=== PATIENT | male | born 1960 | race Caucasian/White ===

== ENCOUNTER 2021-08-03 16:22 | Inpatient (IN) ==
[~2021-08-03 16:22] MED LIST: CALCIUM CHLORIDE 1,000 MG/10 ML SYRINGE IV ONE; EPINEPHrine 1 MG/10 ML (1:10,000) SYRINGE IV ONE; ETOMIDATE 20 MG/10 ML VIAL IV ONE; ROCURONIUM 10 MG/ML ML IV ONE
[2021-08-03] MEDS ORDERED: 0.9 % SODIUM CHLORIDE 1,000 ML IV ONE ×3 (16:33→17:53)
[2021-08-03 17:08] LABS: POC Blood Urea Nitrogen 55 mg/dL (6-20); POC CO2 10 mmol/L (22-30); POC Calcium, Ionized 1.01 mmEq/L (1.16-1.32); POC Chloride 81 mEq/L (96-108); POC Glucose, Random > 700 mg/dL; POC Hematocrit 45 % (41-55); POC Potassium 5.1 mEql/L (3.3-5.1); POC Sodium 107 mEq/L (133-145)
--- NOTE | 2021-08-03 17:31 | Emergency Department Note ---
HPI General Chief complaint: Shortness of Breath/Dyspnea Stated complaint: SOB, back pain Time Seen by Provider: 08/03/21 16:33 Source: family Mode of arrival: ambulatory History of Present Illness HPI Narrative: This is a 61-year-old T2DM patient who presented to the [place] ER with altered mental status and severe dehydration. Blood sugars were noted to be greater than 1500. He was started on IV fluids and given 10 units of subcutaneous insulin. Given his lactic acidosis of 11.3, acute kidney injury with a creatinine of 3.9, and potassium of 5.5 he was transferred to our emergency room for further work-up and treatment. Upon arrival his mental status is intact. He has received 2 L of IV fluids. He is alert and oriented and able to give me reasonably decent history. EKG shows sinus tachycardia with an incomplete left bundle branch block. VBG shows a lactic acid of 10.2, pH is 6.98, CO2 of 29, bicarb of 6.8. Patient meets criteria for DKA. Patient states that he is on Eliquis for history of atrial fibrillation. He has been a type II diabetic for many years and continues on Tradjenta only. He also has a history of seizure disorder on Keppra, and chronic low back pain. He denies a history of cardiac disease. He did see a physical therapy nurse in the remote past for a possible heart attack, but cannot give me any more history than that. He states that he has had fairly increased thirst and increased urination for at least 6 months. Last time he saw his PCP was 2 months ago. He became weak over the last 72 hours and states he fell out of bed this morning because he was so weak. He did not lose consciousness. Patient had negative Covid swab in [place]. He had an elevated D-dimer of 2348, a troponin that was within normal limits per their parameters. Chest x-ray with was without infiltrates per chart review. Related Data Allergies Allergy/AdvReac Type Severity Reaction Status Date / Time Unable to Assess Allergy Unverified 08/03/21 16:25 Review of Systems ROS ROS Narrative: Narrative: All systems ED: reviewed and negative except as stated. [facility] Narrative Patient History Narrative: Narrative: Medical/Surgical/Family History All Active Problems (Updated 08/03/21 @ 19:51 by Kailey Norris PA-C) DKA (diabetic ketoacidosis) (Acute) Leukocytosis (Acute) Acute kidney injury (Acute) Complete left bundle branch block (Acute) Social History Smoking Status: Former smoker Exam Narrative Narrative: General: AOx3, NAD, ill appearing. Appears fatigued but is conversant. HEENT: PERRL, EOMI, normocephalic. Moist mucous membranes. Normal facies and normal dentition. Chest: Symmetric Respiratory: Lungs clear to auscultation bilaterally. No respiratory distress. Unlabored breathing. Heart: Tachycardic rate and regular rhythm, no murmurs/clicks/rubs. Abdomen: Non-tender, Non distended. No organomegaly. Extremities: Warm and well perfused. No edema. DP 2+ bilaterally. No venous stasis. Abrasions noted to the right anterior johnson and knee. Neuro: No focal deficits. Cranial nerves II-XII grossly normal. Skin: Warm dry, no rashes or lesions, no cyanosis. Psych: Normal mood and affect Heme/Lymph: No abnormal bruising Course Course Course Narrative: 61-year-old male patient arrives via EMS from [place] in DKA Reevaluation(s) Reevaluation #1: Continuous IV fluids, initiate IV insulin drip, renal panel every 2 hours to assess anion gap and potassium Obtain EKG, chest x-ray, CBC, CMP, UA Reevaluation #2: CBC with white blood cell count of 27,200. Chest x-ray is without infiltrates and UA is bland without infectious markers. EKG shows a sinus tachycardia with a left bundle branch block and negative for Scarbossa's criteria. Troponin was within normal limits during his evaluation in [place]. Vital Signs Vital signs: Vital Signs Temperature 96.9 F L 08/03/21 16:25 Pulse Rate 111 H 08/03/21 16:25 Respiratory Rate 20 08/03/21 16:25 Blood Pressure 99/55 08/03/21 16:25 Pulse Oximetry (%) 90 08/03/21 16:25 Temperature 96.9 F L 08/03/21 16:25 Pulse Rate 105 H 08/03/21 19:31 Respiratory Rate 19 08/03/21 19:31 Blood Pressure 146/124 08/03/21 19:31 Pulse Oximetry (%) 97 08/03/21 19:31 [facility] Narrative Medical decision making narrative: Diabetic ketoacidosis Acute kidney injury Leukocytosis Left bundle branch block The patient is currently stable and receiving continuous IV fluids and insulin drip for anion gap acidosis. Patient will need admission for DKA. I believe his leukocytosis is related to his DKA and is unlikely infection given his clinical presentation, UA without infectious markers, and a normal chest x-ray. The patient is signed out to Dr. Crouch, hospitalist, who has accepted the patient for admission. Lab Data Result diagrams: 08/03/21 16:49 08/03/21 18:18 Labs: Lab Results 08/03/21 08/03/21 08/03/21 Range/Units 16:49 16:49 17:43 WBC 27.2 H (4.5-11.0) K/mcL RBC 4.65 (4.63-6.08) M/mcL Hgb 14.1 (13.7-17.5) g/dL Hct 47.4 (40.1-51.0) % POC Hct 45 (41-55) % MCV 101.9 H (80.0-100.0) fL MCH 30.3 (26.0-34.0) pg MCHC 29.7 L (31.0-36.0) g/dL RDW 13.4 (11.5-14.5) % Plt Count 166 (140-440) K/mcL MPV (7.4-10.4) fL Neut % (Auto) 89.6 H (38.0-78.0) % Lymph % (Auto) 5.4 L (15.5-49.0) % [place] % (Auto) 4.1 (1.0-12.0) % Eos % (Auto) 0.6 (0.0-7.0) % Baso % (Auto) 0.3 (0.0-2.0) % Lymph # (Auto) 1.48 L (1.50-4.80) K/mcL [place] # (Auto) 1.12 H (0.10-0.90) K/mcL Eos # (Auto) 0.16 (0.00-0.70) K/mcL Baso # (Auto) 0.09 (0.00-0.30) K/mcL Absolute Neutrophils 24.35 H (1.80-8.00) K/mcL POC Sodium 107 L* (133-145) mEq/L Sodium (133-145) mmol/L POC Potassium 5.1 (3.3-5.1) mEql/L Potassium (3.3-5.1) mmol/L POC Chloride 81 L (96-108) mEq/L Chloride (96-108) mmol/L Carbon Dioxide (22-30) mmol/L POC Total CO2 10 L (22-30) mmol/L Anion Gap (8.0-16.0) POC BUN 55 H (6-20) mg/dL BUN (8-23) mg/dL Creatinine (0.7-1.2) mg/dL POC Creatinine 3.0 H (0.6-1.2) mg/dL GFR Calculation Glucose (70-105) mg/dL POC Glucose > 700 H* mg/dL Calcium (8.6-10.4) mg/dL POC WB Ioniz Calcium 1.01 L (1.16-1.32) mmEq/L Magnesium (1.6-2.5) mg/dL Total Bilirubin (0.1-1.0) mg/dL AST (<40) U/L ALT (<40) U/L Alkaline Phosphatase (39-117) U/L Total Protein (5.9-8.4) gm/dL Albumin (3.2-5.2) gm/dL Globulin (2.2-3.7) gm/dL Albumin/Globulin Ratio (1.0-2.3) Urine Color Straw Urine Appearance Hazy A (Clear) Urine pH 5.0 (5.0-9.0) Ur Specific [place] 1.024 (1.000-1.035) Urine Protein Negative (Negative) mg/dL Urine Glucose (UA) >=500 A (Negative) mg/dL Urine Ketones 5 A (Negative) mg/dL Urine Occult Blood 0.03 (Negative) mg/dL Urine Nitrate Negative (Negative) Urine Bilirubin Negative (Negative) mg/dL Urine Urobilinogen Negative mg/dL Ur Leukocyte Esterase Negative (Negative) /uL Urine RBC 0 (0-3) /hpf Urine WBC < 1 (0-4) /hpf Ur Squamous Epith Cells 0 (0-4) /hpf Urine Bacteria None (0) /hpf Urine Mucus Few A (None) /hpf Ur Culture Indicated? No 08/03/21 08/03/21 Range/Units 18:18 18:18 WBC (4.5-11.0) K/mcL RBC (4.63-6.08) M/mcL Hgb (13.7-17.5) g/dL Hct (40.1-51.0) % POC Hct (41-55) % MCV (80.0-100.0) fL MCH (26.0-34.0) pg MCHC (31.0-36.0) g/dL RDW (11.5-14.5) % Plt Count (140-440) K/mcL MPV (7.4-10.4) fL Neut % (Auto) (38.0-78.0) % Lymph % (Auto) (15.5-49.0) % [place] % (Auto) (1.0-12.0) % Eos % (Auto) (0.0-7.0) % Baso % (Auto) (0.0-2.0) % Lymph # (Auto) (1.50-4.80) K/mcL [place] # (Auto) (0.10-0.90) K/mcL Eos # (Auto) (0.00-0.70) K/mcL Baso # (Auto) (0.00-0.30) K/mcL Absolute Neutrophils (1.80-8.00) K/mcL POC Sodium (133-145) mEq/L Sodium 112 L* (133-145) mmol/L POC Potassium (3.3-5.1) mEql/L Potassium 4.2 (3.3-5.1) mmol/L POC Chloride (96-108) mEq/L Chloride 83 L (96-108) mmol/L Carbon Dioxide 9 L* (22-30) mmol/L POC Total CO2 (22-30) mmol/L Anion Gap 20.0 H (8.0-16.0) POC BUN (6-20) mg/dL BUN 42 H (8-23) mg/dL Creatinine 2.3 H (0.7-1.2) mg/dL POC Creatinine (0.6-1.2) mg/dL GFR Calculation 29 Glucose 1383 H* (70-105) mg/dL POC Glucose mg/dL Calcium 5.8 L* (8.6-10.4) mg/dL POC WB Ioniz Calcium (1.16-1.32) mmEq/L Magnesium 2.2 (1.6-2.5) mg/dL Total Bilirubin 0.4 (0.1-1.0) mg/dL AST 29 (<40) U/L ALT 15 (<40) U/L Alkaline Phosphatase 106 (39-117) U/L Total Protein 4.0 L (5.9-8.4) gm/dL Albumin 2.5 L (3.2-5.2) gm/dL Globulin 1.5 L (2.2-3.7) gm/dL Albumin/Globulin Ratio 1.7 (1.0-2.3) Urine Color Urine Appearance (Clear) Urine pH (5.0-9.0) Ur Specific [place] (1.000-1.035) Urine Protein (Negative) mg/dL Urine Glucose (UA) (Negative) mg/dL Urine Ketones (Negative) mg/dL Urine Occult Blood (Negative) mg/dL Urine Nitrate (Negative) Urine Bilirubin (Negative) mg/dL Urine Urobilinogen mg/dL Ur Leukocyte Esterase (Negative) /uL Urine RBC (0-3) /hpf Urine WBC (0-4) /hpf Ur Squamous Epith Cells (0-4) /hpf Urine Bacteria (0) /hpf Urine Mucus (None) /hpf Ur Culture Indicated? ED POC Tests ED POC Tests: BERNARDO - SARS Antigen Negative CC TIME Critical Care Time Critical Care Time: Yes Total Critical Care Time: 32 Attestation: I personally spent a total of 32 minutes of critical care time in obtaining history, performing a physical exam, bedside monitoring of interventions, collecting interpreting tests and discussions with consultants but excluding time spent performing procedures, treating other patients and teaching time. Clinical concern: Acute decompensation from severe DKA Intervention IV fluids, insulin drip, stabilization of anion gap Discharge Plan Patient/Caregiver Discharge Instructions Pt seen by SEAT SCOOPER MACHINE/PA only: No Clinical Impression: DKA (diabetic ketoacidosis), Leukocytosis, Acute kidney injury, Complete left bundle branch block Patient Disposition: Xfer As Inpt ([facility]) Follow up with: Soy Mcgovern [Primary Care Provider] -
[2021-08-03 17:42] LABS: Basophils # (Auto) 0.09 K/mcL (0.00-0.30); Basophils % (Auto) 0.3 % (0.0-2.0); Eosinophils # (Auto) 0.16 K/mcL (0.00-0.70); Eosinophils % (Auto) 0.6 % (0.0-7.0); Hematocrit 47.4 % (40.1-51.0); Hemoglobin 14.1 g/dL (13.7-17.5); Lymphocytes # (Auto) 1.48 K/mcL (1.50-4.80); Lymphocytes % (Auto) 5.4 % (15.5-49.0); Mean Cell Volume 101.9 fL (80.0-100.0); Mean Corpuscular HGB Conc 29.7 g/dL (31.0-36.0); Monocytes # (Auto) 1.12 K/mcL (0.10-0.90); Monocytes % (Auto) 4.1 % (1.0-12.0); Neutrophils % (Auto) 89.6 % (38.0-78.0); Platelet Count 166 K/mcL (140-440); RBC 4.65 M/mcL (4.63-6.08); Red Cell Distribution Width 13.4 % (11.5-14.5); WBC 27.2 K/mcL (4.5-11.0)
[2021-08-03] MEDS: INSULIN REGULAR, HUMAN 50 UNIT in 0.9 % SODIUM CHLORIDE 99.5 ML IV SCH ×2 (17:51→22:58)
--- NOTE | 2021-08-03 18:41 | XRay Report ---
CLINICAL information: Leukocytosis COMPARISON: None FINDINGS: Heart size, mediastinum and pulmonary vessels are normal. Lungs are clear. No effusions. IMPRESSION: Negative Interpreted and Authenticated by: Zach Hendricks 08/03/21
[2021-08-03 18:52] LABS: Appearance,Urine HAZY (Clear); Bilirubin,Urine Negative (Negative); Color,Urine STRAW; Culture Indicated,Urine No; Glucose,Urine (UA) >=500 mg/dL (Negative); Ketones,Urine 5 mg/dL (Negative); Leukocyte Esterase,Urine Negative /uL (Negative); Mucus,Urine FEW /hpf; Nitrate,Urine Negative (Negative); Protein,Urine Negative (Negative); Specific Gravity,Urine 1.024 (1.000-1.035); Urine Blood 0.03 mg/dL (Negative); Urine RBC 0 /hpf (0-3); Urine Squamous Epithelial Cell 0 /hpf (0-4); Urine WBC < 1 /hpf (0-4); Urobilinogen,Urine Negative
[2021-08-03 19:11] LABS: ALT/SGPT 15 U/L (<40); AST/SGOT 29 U/L (<40); Albumin 2.5 gm/dL (3.2-5.2); Albumin/Globulin Ratio 1.7 (1.0-2.3); Alkaline Phosphatase 106 U/L (39-117); Bilirubin,Total 0.4 mg/dL (0.1-1.0); Blood Urea Nitrogen 42 mg/dL (8-23); Calcium 5.8 mg/dL (8.6-10.4); Carbon Dioxide 9 mmol/L (22-30); Chloride 83 mmol/L (96-108); Globulin 1.5 gm/dL (2.2-3.7); Glomerular Filtration Rate 29; Glucose 1383 mg/dL (70-105)
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
[2021-08-03] MEDS ORDERED: 0.9 % SODIUM CHLORIDE 1,000 ML IV SCH (20:00)
[2021-08-03 20:21] LABS: Beta Hydroxybutyrate 3.89 mmol/L (<0.27)
[2021-08-03] MEDS ORDERED: CEPHALEXIN 250 MG CAPSULE PO ONE (21:06)
[2021-08-03] MEDS ORDERED: SULFAMETHOXAZOLE/TRIMETHOPRIM 1 TABLET PO ONE (21:06)
[2021-08-03] MEDS ORDERED: CALCIUM GLUCONATE 4.65 MEQ in DEXTROSE 5% IN WATER 50 ML IV ONE (21:31)
[2021-08-03] MEDS ORDERED: ONDANSETRON 4 MG/2 ML VIAL IV PRN (21:31)
[2021-08-03] MEDS ORDERED: IPRATROPIUM/ALBUTEROL 3 ML AMPUL.NEB NEB PRN (21:31)
[2021-08-03] MEDS ORDERED: FAMOTIDINE/PF 20 MG/2 ML VIAL IV SCH (21:31)
[2021-08-03] MEDS ORDERED: METOCLOPRAMIDE 10 MG/2 ML VIAL IV PRN (21:31)
[2021-08-03] MEDS ORDERED: hydrALAZINE 20 MG/ML VIAL IV PRN (21:31)
[2021-08-03] MEDS ORDERED: CALCIUM GLUCONATE 4.65 MEQ/10 ML VIAL ONE (21:57)
[2021-08-03] MEDS: 0.9 % SODIUM CHLORIDE 10 ML SYRINGE IV SCH (22:00)
[2021-08-03] MEDS ORDERED: INSULIN REGULAR, HUMAN 1 UNIT/0.01 ML UNIT ONE (22:04)
[2021-08-03 22:25] LABS: POC Blood Urea Nitrogen 53 mg/dL (6-20); POC CO2 14 mmol/L (22-30); POC Calcium, Ionized 1.12 mmEq/L (1.16-1.32); POC Chloride 84 mEq/L (96-108); POC Glucose, Random > 700 mg/dL; POC Hematocrit 44 % (41-55); POC Sodium 114 mEq/L (133-145)
[2021-08-03] MEDS: DOCUSATE SODIUM 100 MG CAPSULE PO SCH (22:59)
[2021-08-03 23:38] LABS: Estimated Average Glucose(eAG) 381 mg/dL; Hemoglobin A1C 14.9 % Hgb (4.0-6.0)
[2021-08-03] MEDS ORDERED: fentaNYL 100 MCG/2 ML VIAL IV PRN (23:38)
[2021-08-03] MEDS ORDERED: PANTOPRAZOLE 40 MG VIAL IV ONE (23:58)
[2021-08-04] MEDS ORDERED: NOREPINEPHRINE BITARTRATE 4 MG/4 ML VIAL IV ONE (00:10)
[2021-08-04] MEDS ORDERED: PANTOPRAZOLE 40 MG VIAL IV ONE (00:14)
[2021-08-04] MEDS ORDERED: NOREPINEPHRINE BITARTRATE 8 MG in 0.9 % SODIUM CHLORIDE 242 ML IV SCH (00:15)
[2021-08-04] MEDS ORDERED: 0.9 % SODIUM CHLORIDE 250 ML IV SCH ×4 (00:15→10:00)
[2021-08-04] MEDS ORDERED: METOPROLOL TARTRATE 5 MG/5 ML VIAL IV PRN (00:24)
[2021-08-04] MEDS ORDERED: SODIUM BICARBONATE 50 MEQ/50 ML VIAL ONE ×2 (01:05→01:15)
[2021-08-04] MEDS ORDERED: SODIUM BICARBONATE 50 MEQ/50 ML VIAL IV ONE ×3 (01:10→10:53)
--- NOTE | 2021-08-04 01:12 | Procedure Note ---
PROC Central Line Placement Right IJ: Date of Procedure: 08/04/21 Time out performed: Yes Patient placed on monitor/pulse ox: Yes MD prep: mask, sterile gown and sterile gloves Central line prep: 2% Chlorhexidine scrub Ultrasound used for placement: Yes Central line lumen inserted: quad and 16 cm Post procedure: sutured in place, good blood return, all ports aspirated, flushed, capped and sterile dressing applied Patient tolerated procedure: no complications Additional comments: cxr ordered for placement
--- NOTE | 2021-08-04 01:52 | Emergency Department Note ---
Event Note Event Note: Was called to ICU, for a CODE BLUE. This patient is admitted in critical condition for DKA, became unresponsive. Upon evaluation patient is in extremis undergoing BVM by RT, nursing staff obtaining further lines. On the monitor patient is hypotensive with a regular narrow complex cardiac rhythm and maintaining saturations with BVM. He is poorly responsive with agonal respirations and only grimaces to pain, but not protecting his airway has emesis in back of airway, was suctioned. Will require emergent intubation. Am concerned about worsening acidosis, hyperkalemia, aspiration, respiratory arrest. Patient was immediately given 1 g IV calcium and bicarb and started on IV bolus INTUBATION PROCEDURE NOTE: Rapid sequence intubation performed using 10mg of etomidate IV push followed by 70 mg rocuronium. Patient is intubated by myself using glidescope. Post intubation, good color change noted on the CO2 detector and equal breath sounds heard bilaterally. Portable chest x-ray has been ordered which shows satisfactory position of the endotracheal tube. The patient was placed on a ventilator. Procedure was performed by myself at bedside. I then placed a left upper extremity ultrasound-guided peripheral IV for vascular access. Further care managed by hospitalist.
[2021-08-04 02:05] LABS: POC Blood Urea Nitrogen 53 mg/dL (6-20); POC CO2 15 mmol/L (22-30); POC Calcium, Ionized 1.29 mmEq/L (1.16-1.32); POC Chloride 88 mEq/L (96-108); POC Creatinine 3.4 mg/dL (0.6-1.2); POC Glucose, Random > 700 mg/dL; POC Hematocrit 39 % (41-55); POC Potassium 3.6 mEql/L (3.3-5.1); POC Sodium 117 mEq/L (133-145)
--- NOTE | 2021-08-04 02:15 | XRay Report ---
HISTORY: Central line placement COMPARISON: 08/03/2021 FINDINGS: Right IJ line tip overlies the SVC azygos junction. There is no pneumothorax or other complication. Endotracheal and NG tubes remain in stable satisfactory position. Heart size, mediastinum and pulmonary vessels are normal. Moderate right and small left basilar infiltrates have developed. No effusion. IMPRESSION: Moderate right basilar infiltrate. Right IJ line in satisfactory position Interpreted and Authenticated by: Zach Hendricks 08/04/21
--- NOTE | 2021-08-04 02:17 | XRay Report ---
CLINICAL INFORMATION: Distended/tympanic COMPARISON: None. FINDINGS: The stomach, small and large bowel show moderate symmetric dilatation. There is no air in the rectosigmoid region. . There is no free air, soft tissue mass, organomegaly or pathologic calcification. IMPRESSION: Probable moderate ileus. Distal colonic obstruction is less likely Interpreted and Authenticated by: Zach Hendricks 08/04/21
--- NOTE | 2021-08-04 02:23 | XRay Report ---
CLINICAL INFORMATION: ETT placement COMPARISON: 08/03/2021 1721 hours TECHNIQUE: Portable FINDINGS: The heart size, mediastinum and pulmonary vessels are unremarkable. Endotracheal tube in satisfactory position with the tip 4 cm above the carl. NG tube extends off the edge of film the gastric antrum. Mild bibasilar atelectasis noted. There are no effusions. The bones and soft tissues are within normal limits. IMPRESSION: Endotracheal tube in satisfactory position. Mild bibasilar atelectasis Interpreted and Authenticated by: aZch Hendricks 08/04/21
[2021-08-04] MEDS ORDERED: VASOPRESSIN 20 UNIT/ML VIAL ONE (02:52)
[2021-08-04] MEDS ORDERED: ALBUMIN HUMAN 25 GM/100 ML BAG IV ONE (02:57)
[2021-08-04] MEDS ORDERED: VASOPRESSIN 20 UNIT in DEXTROSE 5% IN WATER 99 ML IV SCH ×2 (03:00→10:00)
[2021-08-04] MEDS ORDERED: INSULIN REGULAR, HUMAN 1 UNIT/0.01 ML UNIT IV ONE ×3 (03:30→09:30)
[2021-08-04 03:38] LABS: POC Blood Urea Nitrogen 53 mg/dL (6-20); POC CO2 17 mmol/L (22-30); POC Calcium, Ionized 1.15 mmEq/L (1.16-1.32); POC Chloride 93 mEq/L (96-108); POC Creatinine 3.3 mg/dL (0.6-1.2); POC Glucose, Random > 700 mg/dL; POC Hematocrit 39 % (41-55); POC Potassium 3.7 mEql/L (3.3-5.1); POC Sodium 124 mEq/L (133-145)
[2021-08-04] MEDS: 0.9 % SODIUM CHLORIDE 1,000 ML IV SCH ×4 (04:35→09:17)
[2021-08-04] MEDS: PROPOFOL 1,000 MG in PREMIX 1 BAG IV SCH ×2 (04:36→08:15)
[2021-08-04] MEDS ORDERED: PHENYLEPHRINE 10 MG/ML VIAL ONE (05:14)
[2021-08-04] MEDS ORDERED: PHENYLEPHRINE 10 MG in 0.9 % SODIUM CHLORIDE 499 ML IV SCH (05:15)
[2021-08-04] MEDS ORDERED: INSULIN REGULAR, HUMAN 1 UNIT/0.01 ML UNIT ONE ×3 (06:00→07:37)
[2021-08-04] MEDS: INSULIN REGULAR, HUMAN 50 UNIT in 0.9 % SODIUM CHLORIDE 99.5 ML IV SCH ×3 (06:30→12:55)
[2021-08-04] MEDS: 0.9 % SODIUM CHLORIDE 10 ML SYRINGE IV SCH ×2 (06:38)
[2021-08-04 06:45] LABS: POC Blood Urea Nitrogen 45 mg/dL (6-20); POC CO2 15 mmol/L (22-30); POC Calcium, Ionized 1.08 mmEq/L (1.16-1.32); POC Chloride 97 mEq/L (96-108); POC Creatinine 3.5 mg/dL (0.6-1.2); POC Glucose, Random > 700 mg/dL; POC Hematocrit 35 % (41-55); POC Sodium 127 mEq/L (133-145)
[2021-08-04 06:55] LABS: ABG Methemoglobin 0.3 % (0.4-1.5); Total Hemoglobin 11.8 gm/Dl (13.5-16.5); VBG Base Excess -18 (-2-2); VBG HCO3 12.6 mmol/L (24.0-28.0); VBG Oxygen Saturation 86.6 % (40.0-70.0); VBG PH 7.04 U (7.32-7.42); VBG PO2 76.1 mmHg (25.0-40.0); VBG Total CO2 14.1 mmol/L (25.0-29.0)
[2021-08-04] MEDS ORDERED: LACTATED RINGERS 1,000 ML IV ONE ×4 (07:07→12:57)
[2021-08-04] MEDS ORDERED: ALBUMIN HUMAN 12.5 GM/50 ML BAG IV ONE (07:07)
[2021-08-04] MEDS: PHENYLEPHRINE 20 MG in 0.9 % SODIUM CHLORIDE 248 ML IV SCH ×4 (07:14→12:45)
[2021-08-04] MEDS ORDERED: PANTOPRAZOLE 40 MG VIAL IV SCH (07:30)
[2021-08-04] MEDS ORDERED: HEPARIN/NS 500 ML IV SCH (07:45)
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
[2021-08-04 07:47] LABS: Hematocrit 34.4 % (40.1-51.0); Hemoglobin 12.1 g/dL (13.7-17.5); Mean Cell Volume 86.9 fL (80.0-100.0); Mean Corpuscular HGB Conc 35.2 g/dL (31.0-36.0); Mean Platelet Volume 14.4 fL (7.4-10.4); Platelet Count 95 K/mcL (140-440); RBC 3.96 M/mcL (4.63-6.08); Red Cell Distribution Width 12.9 % (11.5-14.5); WBC 13.6 K/mcL (4.5-11.0)
--- NOTE | 2021-08-04 07:58 | Emergency Department Note ---
ED Note Addendum Note Addendum: I evaluated and treated this patient in conjunction with the MAURIZIO. I agree with their documented history, examination and medical decision making as documented separately. I also evaluated the patient in person with the following additional findings: On my initial evaluation upon the patient's arrival he is awake and alert and provides somewhat confused answers to questions. His sister is at bedside and notes this is baseline mental status. He is complaining of low back pain that is consistent with his chronic recurrent back pain. We will administer IV fluids and reassess his electrolytes prior to hospital admission.
[2021-08-04 08:00] LABS: POC Blood Urea Nitrogen 47 mg/dL (6-20); POC CO2 17 mmol/L (22-30); POC Calcium, Ionized 1.11 mmEq/L (1.16-1.32); POC Chloride 96 mEq/L (96-108); POC Creatinine 3.7 mg/dL (0.6-1.2); POC Glucose, Random 678 mg/dL (70-105); POC Hematocrit 34 % (41-55); POC Potassium 4.1 mEql/L (3.3-5.1); POC Sodium 127 mEq/L (133-145)
[2021-08-04 08:01] LABS: ALT/SGPT 56 U/L (<40); AST/SGOT 131 U/L (<40); Albumin 3.5 gm/dL (3.2-5.2); Albumin/Globulin Ratio 2.1 (1.0-2.3); Alkaline Phosphatase 114 U/L (39-117); Bilirubin,Direct 0.3 mg/dL (<0.3); Bilirubin,Total 0.7 mg/dL (0.1-1.0); Blood Urea Nitrogen 42 mg/dL (8-23); Calcium 8.2 mg/dL (8.6-10.4); Carbon Dioxide 11 mmol/L (22-30); Chloride 86 mmol/L (96-108); Globulin 1.7 gm/dL (2.2-3.7); Glomerular Filtration Rate 19; Glucose 929 mg/dL (70-105); Lactate Dehydrogenase 712 U/L (135-225); Phosphorous 7.9 mg/dL (2.5-4.5); Triglycerides 435 mg/dL (<150); Uric Acid 8.8 mg/dL (2.5-8.0)
[2021-08-04 08:12] LABS: Band Neutrophils % 23 % (0-10); Hypochromasia FEW (None Seen); Lymphocytes % 14 % (15-49); Metamyelocytes % 1 %; Monocytes % (Manual) 3 % (1-12); Platelet Estimate DECREASED (Normal); Polychromasia FEW (None Seen); RBC Morphology ABNORMAL (Normal); Reactive Lymphocytes 1 % (0-2); Segmented Neutrophils % 58 % (38-78)
[2021-08-04] MEDS: PIPERACILLIN SODIUM/TAZOBACTAM 3.375 GM in DEXTROSE 5% IN WATER 50 ML IV SCH ×2 (08:35→15:44)
--- NOTE | 2021-08-04 08:44 | Procedure Note ---
Procedures - Arterial Line Consent obtained: written consent Date of Procedure: 08/04/21 Time out performed: Yes Size (Gauge): 20 Technique used: guide wire technique Post-Procedure: dry sterile dressing placed, easily flushed, waveform correlation Patient tolerated procedure: well Complications: none Site: left, radial
[2021-08-04] MEDS ORDERED: CHLORHEXIDINE GLUCONATE 1 ML ORAL.SOL SWABMOUTH SCH ×2 (09:00)
[2021-08-04] MEDS: DOCUSATE SODIUM 100 MG CAPSULE PO SCH (09:03)
[2021-08-04] MEDS ORDERED: INSULIN REGULAR, HUMAN 50 UNIT in 0.9 % SODIUM CHLORIDE 99.5 ML IV SCH (09:15)
[2021-08-04] MEDS ORDERED: NOREPINEPHRINE BITARTRATE 16 MG in 0.9 % SODIUM CHLORIDE 234 ML IV SCH (10:00)
[2021-08-04] MEDS ORDERED: levETIRAcetam 500 MG in 0.9 % SODIUM CHLORIDE 100 ML IV SCH (11:30)
[2021-08-04] MEDS ORDERED: BACLOFEN 10 MG TABLET PO PRN (11:56)
[2021-08-04 12:22] LABS: POC Blood Urea Nitrogen 44 mg/dL (6-20); POC CO2 13 mmol/L (22-30); POC Calcium, Ionized 0.99 mmEq/L (1.16-1.32); POC Chloride 101 mEq/L (96-108); POC Creatinine 3.8 mg/dL (0.6-1.2); POC Glucose, Random 462 mg/dL (70-105); POC Hematocrit 26 % (41-55); POC Potassium 3.9 mEql/L (3.3-5.1); POC Sodium 131 mEq/L (133-145)
--- NOTE | 2021-08-04 12:32 | Cat Scan Report ---
CLINICAL INFORMATION: COMPARISON: None. TECHNIQUE: 2.5 mm helical slices were obtained in the skull base to vertex. Following reconstruction, axial reformatted images were reviewed at bone and parenchymal windows. The exam was performed using radiation dose optimization techniques including, but not limited to, automated exposure control, adjustment of the mA and/or kV according to patient size and use of iterative reconstruction technique. FINDINGS: The ventricles, sulci, fissures, and cisterns are symmetrically enlarged compatible with mild atrophy-slightly more than expected for age. No extra-axial fluid collections are identified. Moderate remote cortical-based infarct in the mid left temporal lobe appreciated. The cerebrum, brainstem and cerebellum are, otherwise, unremarkable. There is no evidence of hemorrhage, mass effect, or edema. Bone windows show no osseous abnormality. IMPRESSION: 1. No cerebral hemorrhage or other acute finding. 2. Moderate remote cortical-based infarct in the mid left temporal lobe. 3. Mild atrophy slightly more than expected for age. 4. Moderate bilateral acute maxillary sinusitis. Moderate bilateral ethmoid sinusitis Interpreted and Authenticated by: Zach Hendricks 08/04/21
--- NOTE | 2021-08-04 12:45 | Cat Scan Report ---
CLINICAL INFORMATION: Abdominal pain COMPARISON: None. TECHNIQUE: 0.625 mm helical slices were obtained from the mid heart through the subtrochanteric regions. Following reconstruction, 2.5 mm sagittal, coronal and axial reformatted images were processed and reviewed at bone and soft tissue windows.The exam was performed using radiation dose optimization techniques including, but not limited to, automated exposure control, adjustment of the mA and/or kV according to patient size and use of iterative reconstruction technique. FINDINGS: The lung bases show consolidated atelectasis of6 the entire right lower lobe with subtotal atelectasis of the left lower lobe. Small bilateral pleural effusions noted. The visualized heart is normal. NG tube tip is in the gastric antrum. Abdominal images show gas within the portal vein radicles the medial segment left hepatic lobe. The remainder of the noncontrasted liver is unremarkable. Gallbladder is not identified may be surgically absent. Intrahepatic common bile ducts are normal caliber. Both noncontrasted kidneys, adrenal glands, spleen, pancreas, and aorta are normal in size configuration and attenuation without focal lesion. Pelvic images show urinary bladder to be decompressed by Thomas catheter. Prostate seminal vesicles are unremarkable. There is marked pneumatosis intestinalis within the ascending colon and multiple small bowel loops predominantly the right lower quadrant. Scattered pneumatosis is also seen within the transverse and descending colon. Moderate free air in the nondependent mesenteric cavity and the interloop region. Mild ascites noted. Findings are most compatible with infarcted bowel. Stomach is grossly normal. Bone windows show L2-3 L3-4 and L4-5 anterior/posterior fusion. No focal osseous lesion IMPRESSION: Marked pneumatosis intestinalis within the ascending colon and multiple loops of small bowel in the mid abdomen and right lower quadrant. Smaller amounts of intramural gas are seen within the wall of the transverse and descending colon. In addition, there is mild ascites and modest free intraperitoneal air. Findings are highly suspicious of bowel infarction. Densely consolidated leg atelectasis of the entire right lower lobe and subtotal atelectasis of the left lower lobe. Interpreted and Authenticated by: Zach Hendricks 08/04/21
--- NOTE | 2021-08-04 13:10 | Cat Scan Report ---
CLINICAL INFORMATION: Dyspnea. COMPARISON: None TECHNIQUE: 0.625 mm axial slices were obtained from the lung apices through the bases without intravenous contrast. 2.5 mm Sagittal, coronal and axial reformatted images were processed and reviewed at bone, lung and soft tissue windows. 7 mm axial MIP images were also reconstructed to optimize pulmonary nodule detection.The exam was performed using radiation dose optimization techniques including, but not limited to, automated exposure control, adjustment of the mA and/or kV according to patient size and use of iterative reconstruction technique. FINDINGS: Pulmonary parenchymal windows show complete atelectasis of the right lower lobe. There is subtotal atelectasis of the the left lower lobe sparing only the superior and anterior basilar segments. Mild patchy airspace disease in both posterior upper lobes is likely a combination of atelectasis and aspirate. Mild underlying chronic bronchitis appreciated. There are no pleural effusions. Mediastinal windows show the heart is normal. A small pericardial effusion appreciated. Minimal calcific plaques in the coronary arteries. The noncontrast thoracic aorta and pulmonary arteries are normal diameter. NG tube tip is in the gastric antrum extends. Esophagus is grossly normal. There is no adenopathy in the mediastinal, hilar or axillary regions. Thyroid grossly normal. Endotracheal tip is in satisfactory position approximately 5 cm above the carl. Bones and soft tissues the chest wall are unremarkable IMPRESSION: 1. Complete atelectasis right lower lobe and subtotal atelectasis of the left lower lobe. Mild patchy airspace disease both posterior upper lobes is likely a combination of atelectasis and aspirate. 2. Mild underlying bronchitis. Interpreted and Authenticated by: Zach Hendricks 08/04/21
[2021-08-04] MEDS ORDERED: ONDANSETRON 4 MG ODT TABLET SL PRN (13:21)
[2021-08-04] MEDS ORDERED: morphine 4 MG/ML VIAL NEB PRN (13:21)
[2021-08-04] MEDS ORDERED: LORazepam 2 MG/ML VIAL IV PRN (13:21)
[2021-08-04] MEDS ORDERED: HYDROmorphone 1 MG/ML SYRINGE IV PRN (13:21)
[2021-08-04] MEDS ORDERED: LACTOPEROXI/GLUC OXID/POT THIO 1 EACH GEL..EA. TOPICAL PRN (13:21)
[2021-08-04] MEDS ORDERED: 0.9 % SODIUM CHLORIDE 10 ML SYRINGE IV SCH (14:00)
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
--- NOTE | 2021-08-04 16:10 | EKG ---
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 Measurements Intervals [place] Rate: 103 P: 79 LA: 158 QRS: 76 QRSD: 108 T: -60 QT: 336 QTc: 440 Interpretive Statements Sinus tachycardia Incomplete left bundle branch block Borderline ST elevation, anterior leads Electronically Signed On 08-04-2021 16:10:38 PST by Zach Soto M.D. /[email or web address]/[id number]
--- NOTE | 2021-08-04 16:11 | EKG ---
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 Measurements Intervals [place] Rate: 100 P: 65 LA: 139 QRS: 78 QRSD: 97 T: 269 QT: 367 QTc: 474 Interpretive Statements Sinus tachycardia Repol abnrm suggests ischemia, diffuse leads Baseline wander in lead(s) III Electronically Signed On 08-04-2021 16:11:35 PST by Zach Soto M.D. /[email or web address]/[id number]
--- NOTE | 2021-08-04 16:11 | EKG ---
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 Measurements Intervals [place] Rate: 100 P: 90 RI: 147 QRS: 79 QRSD: 106 T: -56 QT: 330 QTc: 426 Interpretive Statements Sinus tachycardia Probable LVH with secondary repol abnrm Anterior ST elevation, probably due to LVH Electronically Signed On 08-04-2021 16:11:17 PST by Zach Soto M.D. /[email or web address]/[id number]
--- NOTE | 2021-08-04 16:14 | EKG ---
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 Measurements Intervals Downs Rate: 107 P: 60 OK: 125 QRS: 71 QRSD: 92 T: -90 QT: 350 QTc: 467 Interpretive Statements Sinus tachycardia Repol abnrm suggests ischemia, inferior leads Electronically Signed On 08-04-2021 16:13:57 PST by Zach Soto M.D. /[id number]
== END 2021-08-04 14:28 | disposition expired | DRG 637 ==
LOC: SUPCPDRO → ED 16:22 → ICU 21:25
PROVIDERS: ADMIT Internal Medicine; ATTEND Internal Medicine